=== PATIENT | female | born 1985 | race Two or more races ===

== ENCOUNTER → 2016-07-15 | Outpatient (CLI) | payer BC ==
[2016-07-15 10:01] LABS: CHLORIDE,CL 110 mmol/L (98-110); SODIUM,NA 139 mmol/L (136-146)
== END | disposition home or self-care (01) ==
LOC: MW.US 09:09 → MW.CHFP 12:00 → MW.US 07-23 09:15
PROVIDERS: ATTEND Nurse Practitioner Family
DX: R10.13 Epigastric pain (principal); Z98.890 Other specified postprocedural states
CPT/HCPCS: 36415; 76705; 76705-26; 80053; 82607; 82652; 82728; 82746; 85027; 86677

== ENCOUNTER → 2016-07-23 | Outpatient (CLI) | payer BC ==
--- NOTE | 2016-07-23 11:29 | US ---
EXAMINATION: Right upper quadrant ultrasound HISTORY: Pain COMPARISON: None TECHNIQUE: Grayscale and color Doppler images obtained of the right upper quadrant. FINDINGS: The visualized pancreas appears normal. The liver is normal in contour and echogenicity wi thout a focal hepatic mass. The common bile duct measures 4 mm. The gallbladder wall thickness is no rmal. No pericholecystic fluid or shadowing gallstones. Right kidney measures 11.9 cm [id number] w ithout evidence hydronephrosis. The upper pole of the right kidney appears mildly increased in gener alized echogenicity. Sonographic Ellis sign is negative. IMPRESSION: 1. The upper pole of the right kidney is mildly increased in generalized echogenicity, possibly repr esenting scarring versus an angiomyolipoma. 2. Otherwise unremarkable right upper quadrant.
== END | disposition home or self-care (01) ==
LOC: MW.US 09:32
PROVIDERS: ATTEND Nurse Practitioner Family
DX: R10.13 Epigastric pain (principal)
CPT/HCPCS: 76705; 76705-26

== ENCOUNTER → 2016-08-03 | Outpatient (CLI) | payer BC ==
--- NOTE | 2016-08-03 13:48 | NM ---
EXAM DATE: 08/03/16 PATIENT'S AGE: 31 Patient: MARIA ESTHER ANDUJAR Facility: [place], [place] Site Site : [id number] Study: NM Gallbladder [id number]/24/2017 11:59:46 AM Ordering Physician: YA Final Report: HISTORY: 31-year-old female. Epigastric pain. Technique: 3.6 millicuries of [id number] was injected intravenously. Images of the liver, gallbladder and abdomen were obtained in the anterior projection for 45 minutes. 1.7 mcg CCK was then administered intravenously and imaging was continued for an additional 30 minutes. Findings: There is good uptake of activity by the hepatocytes. There is visualization of the biliary tree, gallbladder and small bowel. In response to CCK administration, there is a normal gallbladder ejection fraction of 84 percent by 30 minutes. Impression: 1. Normal study. There is no evidence of acute or chronic cholecystitis. 2. Normal gallbladder ejection fraction of 84 percent. Dictated by Waylon Meléndez MD @ Aug 03 2016 12:45PM (Electronic Signature) Report Signed by Proxy and Original Signed Document filed in the Medical Record. [facility] HOSPITALHeather
== END ==
LOC: MW.NM 10:03
PROVIDERS: ATTEND Nurse Practitioner Family
DX: R10.13 Epigastric pain (principal)
CPT/HCPCS: 78227; A9537; J2805

== ENCOUNTER 2016-12-08 13:56 | Emergency (ER) | payer BC ==
[2016-12-08 14:16] VITALS: BP 146/98
--- NOTE | 2016-12-08 14:36 | EDM.PDOC ---
ED HPI GENERAL MEDICAL PROBLEM - General Chief Complaint: Skin Complaint Stated Complaint: PAINFUL RASH Time Seen by Provider: 12/08/16 14:21 - History of Present Illness INITIAL COMMENTS - FREE TEXT/NARRATIVE: HISTORY AND PHYSICAL: History of present illness: Patient is a 31-year-old white female presented with concern of rash 4 months this is in her abdominal skin folds which were the result of substantive weight loss secondary to bariatric surgery she is scheduled see plastic surgery regarding surgical considerations she has been treated with steroid cream and antifungal cream as well as oral antibiotics. She has not seen dermatology she presents now with increased discomfort with the rash. Review of systems: As per history of present illness and below otherwise all systems reviewed and negative. Past medical history: As per history of present illness and as reviewed below otherwise noncontributory. Surgical history: As per history of present illness and as reviewed below otherwise noncontributory. Social history: No reported history of drug or alcohol abuse. Family history: As per history of present illness and as reviewed below otherwise noncontributory. Physical exam: HEENT: Atraumatic, normocephalic, pupils reactive, negative for conjunctival pallor or scleral icterus, mucous membranes moist, throat clear, neck supple, nontender, trachea midline. Lungs: Clear to auscultation, breath sounds equal bilaterally, chest nontender. Heart: S1S2, regular, negative for clicks, rubs, or JVD. Abdomen: Soft, nondistended, nontender. Negative for masses or hepatosplenomegaly. Negative for costovertebral tenderness. Patient noted to have a monilial type rash in the skin folds of her lower abdomen this area is moist somewhat excoriated in limited to her left abdomen and suprapubic area Pelvis: Stable nontender. Genitourinary: Deferred. Rectal: Deferred. Extremities: Atraumatic, negative for cords or calf pain. Neurovascular unremarkable. Neuro: Awake, alert, oriented. Cranial nerves II through XII unremarkable. Cerebellum unremarkable. Motor and sensory unremarkable throughout. Exam nonfocal. Diagnostics: None Therapeutics: None Impression: #1 rash probable retaining his candidiasis rule out superinfection Definitive disposition and diagnosis as appropriate pending reevaluation and review of above. Lower Abdomen Pain Score (Numeric/FACES): 8 - Related Data Allergies Allergy/AdvReac Type Severity Reaction Status Date / Time NSAIDS (Non-Steroidal Allergy Abdominal Verified 11/05/15 21:56 Anti-Inflamma Pain Home Meds: Home Meds Multivitamin [Multivitamins] 1 cap PO DAILY 11/05/15 [History] Betamethasone Dipropionate [Diprosone 0.05% Crm] 1 applic TOP BID 12/08/16 [ History] Nystatin [Nystop] 1 applic TOP BID 12/08/16 [History] Past Medical History Cardiovascular History: Reports: Hypertension Gastrointestinal History: Reports: GI Bleed Neurological History: Reports: None Psychiatric History: Reports: None - Past Surgical History GI Surgical History: Reports: Appendectomy, Bariatric Procedure Social & Family History - Family History Family Medical History: Noncontributory - Tobacco Use Smoking Status *Q: Never Smoker Second Hand Smoke Exposure: No - Alcohol Use Days Per Week of Alcohol Use: 1 Number of Drinks Per Day: 3 Total Drinks Per Week: 3 - Recreational Drug Use Recreational Drug Use: No ED ROS GENERAL - Review of Systems Review Of Systems: ROS reveals no pertinent complaints other than HPI. ED EXAM, SKIN/RASH Exam: See Below (See dictation) Course - Vital Signs Last Recorded V/S: Last Vital Signs Temp 36.6 C 12/08/16 14:11 Pulse 88 12/08/16 14:11 Resp 20 12/08/16 14:11 BP 146/98 H 12/08/16 14:11 Pulse Ox Departure - Departure Time of Disposition: 14:37 Disposition: Home, Self-Care 01 Condition: Good Clinical Impression: Cutaneous candidiasis, Cellulitis - Discharge Information Referrals: Jaycee Milton [employer]IC STORE MANAGER [Primary Care Provider] - Additional Instructions: The following information is given to patients seen in the emergency department who are being discharged to home. This information is to outline your options for follow-up care. We provide all patients seen in our emergency department with a follow-up referral. The need for follow-up, as well as the timing and circumstances, are variable depending upon the specifics of your emergency department visit. If you don't have a primary care physician on staff, we will provide you with a referral. We always advise you to contact your personal physician following an emergency department visit to inform them of the circumstance of the visit and for follow-up with them and/or the need for any referrals to a consulting specialist. The emergency department will also refer you to a specialist when appropriate. This referral assures that you have the opportunity for followup care with a specialist. All of these measure are taken in an effort to provide you with optimal care, which includes your followup. Under all circumstances we always encourage you to contact your private physician who remains a resource for coordinating your care. When calling for followup care, please make the office aware that this follow-up is from your recent emergency room visit. If for any reason you are refused follow-up, please contact the [facility] emergency department at and asked to speak to the emergency department charge nurse. Follow-up private medical doctor dermatology referral as discussed acute schedule appointment with plastic surgery Bactrim Bactroban Mycolog as prescribed return as needed as discussed
== END 2016-12-08 15:07 | disposition home or self-care (01) ==
LOC: MW.ED 13:56
DX: B37.2 Candidiasis of skin and nail (principal); L03.90 Cellulitis, unspecified; I10 Essential (primary) hypertension; Z90.49 Acquired absence of other specified parts of digestive tract; Z98.84 Bariatric surgery status; Z88.8 Allergy status to other drugs, medicaments and biological substances
CPT/HCPCS: 99282

== ENCOUNTER 2017-02-10 08:17 | Day surgery (SDC) | payer BC ==
[~2017-02-10 08:17] MED LIST: ceFAZolin 2 GM in Premix Bag 1 BAG IV ONE
[2017-02-10] MEDS: Lactated Ringers 1,000 ML IV SCH ×2 (08:47→15:39)
[2017-02-10] MEDS ORDERED: Bupivacaine 0.25%/EPINEPHrine 1:200,000 10 ML SDV INJECT ONE (09:00)
--- NOTE | 2017-02-10 09:28 | PCM.PREANE ---
Preanesthetic Assessment - Anesthesia/Transfusion/Family Hx Anesthesia History: Prior Anesthesia Reaction Type of Anesthesia Reaction: Excessive Nausea/Vomiting Family History of Anesthesia Reaction: No Transfusion History: No Prior Transfusion(s) - Review of Systems General: No Symptoms Pulmonary: No Symptoms Cardiovascular: No Symptoms Gastrointestinal: No Symptoms Neurological: No Symptoms Other: Reports: None - Physical Assessment NPO Status Date: 02/09/17 O2 Sat by Pulse Oximetry: 98 Respiratory Rate: 16 Vital Signs: Last Vital Signs Temp 36.4 C 02/10/17 08:46 Pulse 72 02/10/17 08:46 Resp 16 02/10/17 08:46 BP 135/96 H 02/10/17 08:46 Pulse Ox 98 02/10/17 08:46 Height: 1.65 m Weight: 91.172 kg ASA Class: 2 Mental Status: Alert & Oriented x3 Airway Class: Mallampati = 1 Dentition: Reports: Normal Dentition ROM/Head Extension: Full Lungs: Clear to Auscultation, Normal Respiratory Effort Cardiovascular: Regular Rate, Regular Rhythm - Lab Values: Laboratory Last Values Urine HCG, Qual NEGATIVE (NEGATIVE) 02/10/17 08:20 - Allergies Allergies/Adverse Reactions: Allergies Allergy/AdvReac Type Severity Reaction Status Date / Time adhesive tape Allergy Blisters Verified 02/05/17 12:43 NSAIDS (Non-Steroidal Allergy Abdominal Verified 02/05/17 11:10 Anti-Inflamma Pain - Anesthesia Plan Beta Jose: Metoprolol Med Last Dose Date: 02/10/17 - Acknowledgements Anesthesia Type Planned: General Anesthesia Pt an Appropriate Candidate for the Planned Anesthesia: Yes Alternatives and Risks of Anesthesia Discussed w Pt/Guardian: Yes Pt/Guardian Understands and Agrees with Anesthesia Plan: Yes PreAnesthesia Questionnaire Cardiovascular History: Reports: Hypertension Gastrointestinal History: Reports: GERD Neurological History: Reports: Concussion Psychiatric History: Reports: None Endocrine/Metabolic History: Reports: Obesity/BMI 30+ Hematologic History: Reports: Anemia, B12 Deficiency Dermatologic History: Reports: Other (See Below) Other Dermatologic History: chronic dermatitis under panus - Infectious Disease History Infectious Disease History: Reports: Chicken Pox - Past Surgical History Head Surgeries/Procedures: Reports: None GI Surgical History: Reports: Appendectomy, Bariatric Procedure - SUBSTANCE USE Smoking Status *Q: Never Smoker Second Hand Smoke Exposure: No Days Per Week of Alcohol Use: 1 Number of Drinks Per Day: 3 Total Drinks Per Week: 3 Recreational Drug Use History: No - HOME MEDS Home Medications: Home Meds Betamethasone Dipropionate [Diprosone 0.05% Crm] 1 applic TOP BID 12/08/16 [ History] Ferrous Sulfate 324 mg PO DAILY 02/05/17 [History] Lisinopril/Hydrochlorothiazide [Lisinopril-Hctz 20-12.5 mg Tab] 1 tab PO DAILY 02/05/17 [History] Metoprolol Succinate 100 mg PO DAILY 02/05/17 [History] Nystatin 1 dose TOP BID 02/05/17 [History] Ondansetron [Zofran Odt] 8 mg PO TID PRN 02/05/17 [History] - CURRENT (IN HOUSE) MEDS Current Meds: Current Medications Hydrocodone Bitart/Acetaminophen ([place] 325-5 Mg) 1 tab PO Q4H PRN PRN Reason: Pain Bupivacaine Liposome (Exparel) 20 ml INFILT ONETIME ONE Stop: 02/10/17 14:01 Diphenhydramine HCl (Benadryl) 25 mg PO Q4H PRN PRN Reason: Itching Hydromorphone HCl (Dilaudid) 0.5 mg IVPUSH Q2H PRN PRN Reason: Pain (severe 7-10) Lactated Ringer's (Ringers, Lactated) 1,000 mls @ 125 mls/hr IV ASD[facility]RECTED [facility] Last Admin: 02/10/17 08:47 Dose: 125 mls/hr Ondansetron HCl (Zofran Odt) 4 mg PO Q6H PRN PRN Reason: Nausea/Vomiting Ondansetron HCl (Zofran) 4 mg IVPUSH Q6H PRN PRN Reason: Nausea/Vomiting Discontinued Medications Bupivacaine HCl/Epinephrine Bitart (Marcaine 0.25%/Epinephrine 1:200,000) 30 ml INJECT ONETIME ONE Stop: 02/10/17 09:01 Cefazolin Sodium/Dextrose 2 gm (/ Premix) 50 mls @ 100 mls/hr IV ONETIME ONE Stop: 02/10/17 08:29
[2017-02-10] MEDS ORDERED: Lidocaine 2% 5 ML SDV ONE (09:31)
[2017-02-10] MEDS ORDERED: Propofol 200 MG/20 ML SDV ONE ×3 (09:32→12:41)
[2017-02-10] MEDS ORDERED: fentaNYL 100 MCG/2 ML SDV ONE ×2 (09:32→11:56)
[2017-02-10] MEDS ORDERED: Midazolam 1 MG/ML 2 ML SDV ONE (09:32)
[2017-02-10] MEDS ORDERED: Neostigmine Methylsulfate 1 MG/ML 5 ML Syringe ONE (09:33)
[2017-02-10] MEDS ORDERED: Rocuronium 10 MG/ML 10 ML Syringe ONE (09:33)
[2017-02-10] MEDS ORDERED: Ondansetron 4 MG/2 ML SDV ONE ×2 (09:33→11:32)
[2017-02-10] MEDS ORDERED: ceFAZolin 1 GM Vial ONE (09:38)
[2017-02-10] MEDS ORDERED: Sodium Chloride 0.9% 20 ML ONE (09:38)
[2017-02-10] MEDS ORDERED: Bupivacaine 0.25%/EPINEPHrine 1:200,000 10 ML SDV ONE (10:29)
[2017-02-10] MEDS ORDERED: Octyl 2-Cyanoacrylate 1 Tube ONE (10:29)
[2017-02-10] MEDS ORDERED: Scopolamine 1.5 MG Transdermal Patch ONE (11:08)
[2017-02-10] MEDS ORDERED: HYDROmorphone 2 MG/ML Syringe ONE (11:26)
[2017-02-10] MEDS ORDERED: ePHEDrine 50 MG/ML SDV ONE (11:34)
[2017-02-10] MEDS ORDERED: HYDROmorphone 2 MG/ML Syringe IVPUSH ONE (13:59)
[2017-02-10] MEDS ORDERED: diphenhydrAMINE 25 MG Cap PO PRN (14:00)
[2017-02-10] MEDS ORDERED: Bupivacaine Liposome 1.3% 20 ML SDV INFILT ONE (14:00)
--- NOTE | 2017-02-10 14:21 | PCM.POSTAN ---
POST ANESTHESIA ASSESSMENT - MENTAL STATUS Mental Status: Alert, Oriented - RESPIRATORY Respiratory Status: Respiratory Rate WNL, Airway Patent, O2 Saturation Stable - CARDIOVASCULAR CV Status: Pulse Rate WNL, Blood Pressure Stable - GASTROINTESTINAL GI Status: No Symptoms - POST OP HYDRATION Hydration Status: Adequate & Stable
[2017-02-10] MEDS: fentaNYL 100 MCG/2 ML SDV IVPUSH PRN ×2 (14:26→14:30)
--- NOTE | 2017-02-10 15:09 | PCM.OPNOTE ---
- General Post-Op/Procedure Note Date of Surgery/Procedure: 02/10/17 Operative Procedure(s): panniculectomy with umbilicoplasty Pre Op Diagnosis: pannus Post-Op Diagnosis: pannus Anesthesia Technique: General ET Tube, Local Primary Surgeon: Kori Chanel Clinical Athletic Instructor: Paola Messina Complications: None Condition: Good Free Text/Narrative:: Intake & Output 02/09/17 02/10/17 02/10/17 23:59 07:59 15:59 Intake Total 2500 Balance 2500
[2017-02-10] MEDS: Ondansetron 4 MG/2 ML SDV IVPUSH PRN (15:28)
[2017-02-10] MEDS: HYDROmorphone 2 MG/ML Syringe IVPUSH PRN ×3 (15:42→20:12)
--- NOTE | 2017-02-10 17:17 | PCM48HPAN ---
Post Anesthesia Note - EVALUATION WITHIN 48HRS OF ANESTHETIC Vital Signs in Normal Range: Yes Patient Participated in Evaluation: Yes Respiratory Function Stable: Yes Airway Patent: Yes Cardiovascular Function Stable: Yes Hydration Status Stable: Yes Pain Control Satisfactory: Yes Nausea and Vomiting Control Satisfactory: Yes Mental Status Recovered: Yes
[2017-02-10] MEDS: Ondansetron 4 MG Tab.DIS PO PRN (18:09)
[2017-02-10] MEDS: Acetaminophen/HYDROcodone 325-5 MG Tab PO PRN ×2 (19:43→19:47)
[2017-02-11] MEDS: HYDROmorphone 2 MG/ML Syringe IVPUSH PRN (00:04)
[2017-02-11] MEDS: Ondansetron 4 MG/2 ML SDV IVPUSH PRN (00:11)
[2017-02-11] MEDS: Lactated Ringers 1,000 ML IV SCH ×2 (00:14→08:18)
[2017-02-11] MEDS: Acetaminophen/HYDROcodone 325-5 MG Tab PO PRN ×3 (04:13→12:01)
[2017-02-11] MEDS: Ondansetron 4 MG Tab.DIS PO PRN (08:16)
[2017-02-11 11:39] VITALS: BP 107/65
[2017-02-11] MEDS ORDERED: Acetaminophen/HYDROcodone 325-5 MG Tab PO PRN (15:21)
--- NOTE | 2017-02-16 08:10 | PCM.SN ---
- Free Text/Narrative Note: Post op day one patient is doing well and taking only oral medications. no nausea and would like to go home.
--- NOTE | 2017-02-16 10:40 | OR ---
SURGEON: SHAW RODGERS MD DATE OF PROCEDURE: 02/10/2017 PREOPERATIVE DIAGNOSIS: Abdominal pannus. POSTOPERATIVE DIAGNOSIS: Abdominal pannus. PROCEDURE: Panniculectomy with umbilicoplasty. ANESTHESIA: General ET tube with local. AXMINSTER WEAVER: PADILLA [place] INDICATIONS: Ms. Anthony is a 32-year-old female with significant abdominal pannus after a massive weight loss. Risks and benefits of panniculectomy were discussed with her and she was in agreement to proceed. In addition, we discussed umbilical repositioning and she would like to proceed with this. Risks were including, but not limited to, bleeding, infection, damage to underlying or overlying structures, possible need for future interventions, possible scarring. PROCEDURE IN DETAIL: After informed consent was obtained and placed on the chart, the patient was brought to the operating theater and laid in supine position. After adequate general anesthesia was obtained, the area was prepped and draped and a time-out was completed to confirm side and site. Once adequately confirmed, attention was then paid to the inferior lower incision on the abdomen. Dissection was then carried on the abdominal wall, freeing up the abdominal flap up to the xiphoid process taking care to isolate the umbilicus. Once adequately isolated, meticulous hemostasis was obtained and the skin was redraped. Once adequately redraped and approximated, attention was then paid to marking for the actual excision. This was just slightly above the umbilicus. Once adequately marked, excess skin was removed and attention was paid to the mons. The mons was elevated a small amount in order to allow appropriate contour and tacking to the pubic bone. This was done with deep 2-0 PDS sutures. Once adequately tacked, the area was redraped and a small additional amount of skin was removed from here. Once this was completed, attention was then paid to redraping of the skin flap on the upper abdomen and plication sutures were used to plicate the abdominal wall to the skin flap in appropriate contour at the lateral rectus edge. This also was used to advance the upper skin flap to allow closure under no tension. Once adequately advanced with a 2-0 PDS sutures, attention was then paid to placement of the size 7 YUSEF drain and these were sutured laterally at the lateral aspect of the incision using a 3-0 Prolene. Once sutured in place, the skin flap was redraped and stapled. Once adequately stapled, attention was then paid to meticulous closure and a running 2-0 STRATAFIX PDS suture was used for the deep layer, a running 3- 0 Monocryl STRATAFIX suture was used for the dermis, and a running 4-0 STRATAFIX suture was used for the skin. Four of each were used for closure. Once adequately closed, the wounds were dressed with Steri-Strips, fluffs, and tape. Prior to placement of the dressings on the lower abdomen, the umbilicus was brought through in its new measured position using an inverted V incision. Dissection was carried through the skin and subcutaneous tissues using a 15 blade and Littler scissor for dissection. The umbilicus was easily located and brought through under no tension. This was shaped and then sutured in place using deep 4-0 Monocryl stitches and Dermabond for the skin. It was then dressed with a Tegaderm border. Once the procedure was completed and the dressings were placed, attention was then paid to placement of the abdominal compression garment. She tolerated this well. All counts and needles were correct at the end of the case. FOLLOWUP INSTRUCTIONS: The patient will be maintained in the hospital overnight under same day surgery status and will be discharged tomorrow. All questions answered and we will re- evaluate in the morning. CRUZITO KARIMI /[id number]
--- NOTE | 2017-02-23 12:35 | PCM.HPR ---
H & P Addendum review - H & P Addendum Review Date of Original H & P: 01/28/17 Date Reviewed: 02/10/17 Time Reviewed: 11:00 Patient was Examined: No Changes Please Note any Changes: H&P and addendum are on chart in scanned documents. No H&P or addendum actually needed.
== END 2017-02-11 15:50 | disposition home or self-care (01) ==
LOC: MW.SDS 08:17 → MW.MS 15:49 → MW.SDS 02-11 15:50
PROVIDERS: ATTEND Plastic Surgery
DX: E65 Localized adiposity (principal); I10 Essential (primary) hypertension; K21.9 Gastro-esophageal reflux disease without esophagitis; E66.9 Obesity, unspecified; E53.8 Deficiency of other specified B group vitamins; Z88.8 Allergy status to other drugs, medicaments and biological substances; Z91.09 Other allergy status, other than to drugs and biological substances; Z68.30 Body mass index [BMI] 30.0-30.9, adult; Z90.49 Acquired absence of other specified parts of digestive tract; Z98.84 Bariatric surgery status; Z79.899 Other long term (current) drug therapy
CPT/HCPCS: 15830; 15847; 81025; A9270; J0690; J1170; J2250; J2405; J3010; J7120; 00802; J2704

== ENCOUNTER 2017-07-07 21:37 | Emergency (ER) | payer BC, OTHER ==
[2017-07-07] MEDS ORDERED: Sodium Chloride 0.9% 1,000 ML IV ONE (21:48)
[2017-07-07] MEDS ORDERED: Ondansetron 4 MG/2 ML SDV IVPUSH ONE (21:48)
--- NOTE | 2017-07-07 21:54 | EDM.PDOC ---
ED HPI GENERAL MEDICAL PROBLEM - General Chief Complaint: Gastrointestinal Problem Stated Complaint: DIARRHEA Time Seen by Provider: 07/07/17 21:51 - History of Present Illness INITIAL COMMENTS - FREE TEXT/NARRATIVE: HISTORY AND PHYSICAL: History of present illness: Patient 32-year-old female who presents with concern of nausea vomiting and sore throat worse over last 2-3 days she denies fever chills she denies influenza immunization this year denies denies vaginal discharge bleeding or other concern Review of systems: As per history of present illness and below otherwise all systems reviewed and negative. Past medical history: As per history of present illness and as reviewed below otherwise noncontributory. Surgical history: As per history of present illness and as reviewed below otherwise noncontributory. Social history: No reported history of drug or alcohol abuse. Family history: As per history of present illness and as reviewed below otherwise noncontributory. Physical exam: HEENT: Atraumatic, normocephalic, pupils reactive, negative for conjunctival pallor or scleral icterus, mucous membranes dry, throat clear, neck supple, nontender, trachea midline. Lungs: Clear to auscultation, breath sounds equal bilaterally, chest nontender. Heart: S1S2, regular, negative for clicks, rubs, or JVD. Abdomen: Soft, nondistended, nontender. Negative for masses or hepatosplenomegaly. Negative for costovertebral tenderness. Pelvis: Stable nontender. Genitourinary: Deferred. Rectal: Deferred. Extremities: Atraumatic, negative for cords or calf pain. Neurovascular unremarkable. Neuro: Awake, alert, oriented. Cranial nerves II through XII unremarkable. Cerebellum unremarkable. Motor and sensory unremarkable throughout. Exam nonfocal. Diagnostics: CBC CMP hCG rapid strep influenza screen Therapeutics: Saline 1 L bolus Impression: #1 vomiting with dehydration #2 pharyngitis #3 viral syndrome #4 dehydration Definitive disposition and diagnosis as appropriate pending reevaluation and review of above. throat/abdominal Pain Score (Numeric/FACES): 4 - Related Data Allergies Allergy/AdvReac Type Severity Reaction Status Date / Time adhesive tape Allergy Blisters Verified 07/07/17 21:44 NSAIDS (Non-Steroidal Allergy Abdominal Verified 07/07/17 21:44 Anti-Inflamma Pain oxycodone Allergy Vomiting Verified 07/07/17 21:45 Home Meds: Home Meds Betamethasone Dipropionate [Diprosone 0.05% Crm] 1 applic TOP BID 12/08/16 [ History] Ferrous Sulfate 324 mg PO DAILY 02/05/17 [History] Lisinopril/Hydrochlorothiazide [Lisinopril-Hctz 20-12.5 mg Tab] 1 tab PO DAILY 02/05/17 [History] Metoprolol Succinate 100 mg PO DAILY 02/05/17 [History] Nystatin 1 dose TOP BID 02/05/17 [History] Acetaminophen/HYDROcodone [[place]ress 325-5 MG] 2 tab PO Q4H PRN #40 tablet 02/11/17 [Rx] Cephalexin [Keflex] 250 mg PO Q6HR #20 cap 02/11/17 [Rx] Ondansetron [Zofran Odt] 8 mg PO TID PRN #20 tab.dis 02/11/17 [Rx] Past Medical History Cardiovascular History: Reports: Hypertension Gastrointestinal History: Reports: GERD, Other (See Below) Other Gastrointestinal History: Bleeding Ulcer Neurological History: Reports: Concussion Psychiatric History: Reports: None Endocrine/Metabolic History: Reports: Obesity/BMI 30+ Hematologic History: Reports: Anemia, B12 Deficiency Dermatologic History: Reports: Other (See Below) Other Dermatologic History: chronic dermatitis under panus - Infectious Disease History Infectious Disease History: Reports: Chicken Pox - Past Surgical History Head Surgeries/Procedures: Reports: None GI Surgical History: Reports: Appendectomy, Bariatric Procedure Social & Family History - Family History Family Medical History: Noncontributory - Tobacco Use Smoking Status *Q: Never Smoker Second Hand Smoke Exposure: No - Caffeine Use Caffeine Use: Reports: Coffee - Alcohol Use Days Per Week of Alcohol Use: 1 Number of Drinks Per Day: 3 Total Drinks Per Week: 3 - Recreational Drug Use Recreational Drug Use: No Drug Use in Last 12 Months: No ED ROS GENERAL - Review of Systems Review Of Systems: ROS reveals no pertinent complaints other than HPI. ED EXAM, GENERAL - Physical Exam Exam: See Below (See dictation) Course - Vital Signs Last Recorded V/S: Last Vital Signs Temp 36.9 C 07/07/17 23:01 Pulse 72 07/07/17 23:01 Resp 20 07/07/17 23:01 BP 156/112 H 07/07/17 23:01 Pulse Ox 100 07/07/17 23:01 - Orders/Labs/Meds Labs: Laboratory Tests 07/07/17 07/07/17 07/07/17 Range/Units 21:48 22:03 22:05 WBC 3.02 L (4.0-11.0) K/uL RBC 5.29 (4.30-5.90) M/uL Hgb 11.9 L (12.0-16.0) g/dL Hct 36.6 (36.0-46.0) % MCV 69.2 L (80.0-98.0) fL MCH 22.5 L (27.0-32.0) pg MCHC 32.5 (31.0-37.0) g/dL RDW Std Deviation 44.2 (28.0-62.0) fl RDW Coeff of [place] 18 H (11.0-15.0) % Plt Count 345 (150-400) K/uL MPV 8.50 (7.40-12.00) fL Neut % (Auto) 57.6 (48.0-80.0) % Lymph % (Auto) 32.8 (16.0-40.0) % [place] % (Auto) 8.6 (0.0-15.0) % Eos % (Auto) 0.7 (0.0-7.0) % Baso % (Auto) 0.3 (0.0-1.5) % Neut # (Auto) 1.7 (1.4-5.7) K/uL Lymph # (Auto) 1.0 (0.6-2.4) K/uL [place] # (Auto) 0.3 (0.0-0.8) K/uL Eos # (Auto) 0.0 (0.0-0.7) K/uL Baso # (Auto) 0.0 (0.0-0.1) K/uL Nucleated RBC % 0.0 /100WBC Nucleated RBCs # 0 K/uL Sodium 137 (136-145) mmol/L Potassium 3.5 (3.5-5.1) mmol/L Chloride 104 (98-107) mmol/L Carbon Dioxide 24.0 (21.0-32.0) mmol/L BUN 8 (7.0-18.0) mg/dL Creatinine 0.7 (0.6-1.0) mg/dL Est Cr Clr Drug Dosing 105.74 mL/min Estimated GFR (MDRD) > 60.0 ml/min Glucose 86 (74-106) mg/dL Calcium 8.4 L (8.5-10.1) mg/dL Total Bilirubin 0.4 (0.2-1.0) mg/dL AST 33 (15-37) IU/L ALT 30 (14-63) IU/L Alkaline Phosphatase 60 (46-116) U/L Total Protein 7.9 (6.4-8.2) g/dL Albumin 3.6 (3.4-5.0) g/dL Globulin 4.3 H (2.0-3.5) g/dL Albumin/Globulin Ratio 0.8 L (1.3-2.8) HCG, Qual NEGATIVE (NEG) Urine Color Urine Appearance Urine pH (5.0-8.0) Ur Specific [address] (1.001-1.035) Urine Protein (NEGATIVE) mg/dL Urine Glucose (UA) (NEGATIVE) mg/dL Urine Ketones (NEGATIVE) mg/dL Urine Occult Blood (NEGATIVE) Urine Nitrite (NEGATIVE) Urine Bilirubin (NEGATIVE) Urine Ictotest Urine Urobilinogen (<2.0) EU/dL Ur Leukocyte Esterase (NEGATIVE) Urine RBC (0-2/HPF) Urine WBC (0-5/HPF) Ur Epithelial Cells (NONE-FEW) Urine Bacteria (NEGATIVE) Urine Mucus (NONE-MOD) 07/07/17 Range/Units 22:20 WBC (4.0-11.0) K/uL RBC (4.30-5.90) M/uL Hgb (12.0-16.0) g/dL Hct (36.0-46.0) % MCV (80.0-98.0) fL MCH (27.0-32.0) pg MCHC (31.0-37.0) g/dL RDW Std Deviation (28.0-62.0) fl RDW Coeff of [place] (11.0-15.0) % Plt Count (150-400) K/uL MPV (7.40-12.00) fL Neut % (Auto) (48.0-80.0) % Lymph % (Auto) (16.0-40.0) % [place] % (Auto) (0.0-15.0) % Eos % (Auto) (0.0-7.0) % Baso % (Auto) (0.0-1.5) % Neut # (Auto) (1.4-5.7) K/uL Lymph # (Auto) (0.6-2.4) K/uL [place] # (Auto) (0.0-0.8) K/uL Eos # (Auto) (0.0-0.7) K/uL Baso # (Auto) (0.0-0.1) K/uL Nucleated RBC % /100WBC Nucleated RBCs # K/uL Sodium (136-145) mmol/L Potassium (3.5-5.1) mmol/L Chloride (98-107) mmol/L Carbon Dioxide (21.0-32.0) mmol/L BUN (7.0-18.0) mg/dL Creatinine (0.6-1.0) mg/dL Est Cr Clr Drug Dosing mL/min Estimated GFR (MDRD) ml/min Glucose (74-106) mg/dL Calcium (8.5-10.1) mg/dL Total Bilirubin (0.2-1.0) mg/dL AST (15-37) IU/L ALT (14-63) IU/L Alkaline Phosphatase (46-116) U/L Total Protein (6.4-8.2) g/dL Albumin (3.4-5.0) g/dL Globulin (2.0-3.5) g/dL Albumin/Globulin Ratio (1.3-2.8) HCG, Qual (NEG) Urine Color YELLOW Urine Appearance CLEAR Urine pH 5.5 (5.0-8.0) Ur Specific [address] >= 1.030 (1.001-1.035) Urine Protein NEGATIVE (NEGATIVE) mg/dL Urine Glucose (UA) NEGATIVE (NEGATIVE) mg/dL Urine Ketones 15 H (NEGATIVE) mg/dL Urine Occult Blood NEGATIVE (NEGATIVE) Urine Nitrite NEGATIVE (NEGATIVE) Urine Bilirubin SMALL H (NEGATIVE) Urine Ictotest NEGATIVE Urine Urobilinogen 0.2 (<2.0) EU/dL Ur Leukocyte Esterase NEGATIVE (NEGATIVE) Urine RBC NONE SEEN (0-2/HPF) Urine WBC 0-2 (0-5/HPF) Ur Epithelial Cells FEW (NONE-FEW) Urine Bacteria FEW (NEGATIVE) Urine Mucus MODERATE (NONE-MOD) Meds: Medications Discontinued Medications Generic Name Dose Route Start Last Admin Trade Name Senait PRN Reason Stop Dose Admin Sodium Chloride 1,000 mls @ 999 mls/hr 07/07/17 21:48 07/07/17 22:08 Normal Saline IV 07/07/17 22:48 999 mls/hr .Bolus ONE Administration Ondansetron HCl 4 mg 07/07/17 21:48 07/07/17 22:09 Zofran IVPUSH 07/07/17 21:49 4 mg ONETIME ONE Administration Departure - Departure Time of Disposition: 06:36 Disposition: Home, Self-Care 01 Condition: Good Clinical Impression: Viral syndrome - Discharge Information Instructions: Vomiting, Adult, Viral Illness, Adult, Diarrhea, Adult, Easy-to- Read Referrals: PCP,None [Primary Care Provider] - Forms: ED Department Discharge
[2017-07-07 22:42] LABS: CHLORIDE,CL 104 mmol/L (98-107); SODIUM,NA 137 mmol/L (136-145)
[2017-07-07 23:02] VITALS: BP 156/112
== END 2017-07-07 23:08 | disposition home or self-care (01) ==
LOC: MW.ED 21:37
DX: B34.9 Viral infection, unspecified (principal); I10 Essential (primary) hypertension; K21.9 Gastro-esophageal reflux disease without esophagitis; Z79.899 Other long term (current) drug therapy; Z91.09 Other allergy status, other than to drugs and biological substances; Z88.6 Allergy status to analgesic agent; Z88.8 Allergy status to other drugs, medicaments and biological substances
CPT/HCPCS: 36415; 80053; 81001; 84703; 85025; 87081; 87804; 87880; 96361; 96374; 99284; J2405; J7040; 99283

== ENCOUNTER 2020-03-25 11:26 | Emergency (ER) | payer BC, OTHER ==
[2020-03-25] MEDS ORDERED: Morphine 4 MG/ML Syringe IVPUSH ONE (12:25)
[2020-03-25] MEDS ORDERED: Ondansetron 4 MG/2 ML SDV IVPUSH ONE (13:03)
--- NOTE | 2020-03-25 14:15 | CT ---
INDICATION: fall down stairs Technique: Non-contrast head CT scan. Findings: No abnormal foci of altered attenuation in the brain parenchyma. No midline shift or mass effect. No hydrocephalus. No abnormal extra-axial fluid collections. No abnormalities identified in the visualized portions of the skull and scalp. Probable mucus retention cysts in the maxillary sinuses. Impression: No evidence of acute intracranial abnormalities. Dictated by: Yusuf Brown MD @ 03/25/2020 14:13:30 (Electronically Signed)
--- NOTE | 2020-03-25 14:25 | CT ---
HISTORY: Fall. TECHNIQUE: Noncontrast CT lumbar spine. COMPARISON: No prior. FINDINGS: There is no acute lumbar fracture or lumbar malalignment. Minor loss of disc height at L5-S1 with slight posterior listhesis of L5 on S1. The lumbar alignment is otherwise maintained. There is no significant central canal or neural foraminal stenosis. IMPRESSION: 1. No acute lumbar fracture. 2. Mild loss vertebral disc height posteriorly at L5-S1 with slight posterior listhesis of L5 on S1. Dictated by Yair Holcomb MD @ 03/25/2020 2:24:15 PM Please note that all CT scans at this facility use dose modulation, iterative reconstruction, and/or weight-based dosing when appropriate to reduce radiation dose to as low as reasonably achievable. Dictated by: Yair Holcomb MD @ 03/25/2020 14:24:20 (Electronically Signed)
--- NOTE | 2020-03-25 14:27 | CR ---
INDICATION: Fall. FINDINGS: Three views of the left elbow show no evidence of acute fracture or dislocation. No elbow joint effusion. No other bony or soft tissue abnormalities identified. Dictated by Yusuf Brown MD @ Mar 25 2020 2:24PM Signed by Dr. Yusuf Brown @ Mar 25 2020 2:25PM
--- NOTE | 2020-03-25 14:48 | EDM.PDOC ---
ED HPI GENERAL MEDICAL PROBLEM - General Chief Complaint: General Stated Complaint: FELL DOWN STAIRS Time Seen by Provider: 03/25/20 11:36 - History of Present Illness INITIAL COMMENTS - FREE TEXT/NARRATIVE: CHIEF COMPLAINT(S): Fall HISTORY OF PRESENT ILLNESS: This is a 34-year-old woman with a past medical history of hypertension who comes to the emergency department with a chief complaint of fall. The patient states that she was walking into her garage and she slipped and fell down approximately 4-5 stairs. She states that this happened approximately 1 hour ago. She states that she did hit her back her left arm, and her head. She denies any loss of consciousness. She states that she is experiencing a headache where she hit her head but denies any vomiting and has some associated nausea. She denies any double vision, blurry vision, numbness, tingling, or weakness. She states that she is mainly experiencing left elbow pain and right lower back pain. She denies any bowel incontinence or urinary retention. She states that she is not on any blood thinners. She denies any abdominal pain, chest pain, or shortness of breath. She denies any other symptoms. She states that her last menstrual period was in January however there is no way she can be . REVIEW OF SYSTEMS: Constitutional: Denies fever, chills. Eyes: Denies eye pain Ears, Nose, Mouth, & Throat: Denies earache Cardiovascular: Denies chest pain Respiratory: Denies shortness of breath Gastrointestinal: Positive for nausea. Denies vomiting, diarrhea, hematochezia, hematemesis, bilious emesis, bowel incontinence Genitourinary: Denies hematuria urinary incontinence MSK: Positive for left elbow pain and back pain. Neurological: Positive for headache. Denies numbness, tingling, weakness Psychiatric: Denies depression PAST MEDICAL HISTORY: As per history of present illness and as reviewed below otherwise noncontributory. SURGICAL HISTORY: As per history of present illness and as reviewed below otherwise noncontributory. LMP: January 2020 SOCIAL HISTORY: As per history of present illness and as reviewed below otherwise noncontributory. FAMILY HISTORY: As per history of present illness and as reviewed below otherwi se noncontributory. EXAMINATION OF ORGAN SYSTEMS/BODY AREAS: Constitutional: Blood pressure was 133/86, heart rate 91, respiratory rate 18 with an oxygen saturation 97% on room air. Temperature 36.0 General: Overall well-appearing woman in no acute distress Psychiatric: Appropriate mood and affect. Eyes: No scleral icterus or conjunctival erythema pupils are equal round reactive to light. Extraocular movements intact. ENMT: Moist mucous membranes. No pharyngeal erythema uvula is midline. Tongue protrudes midline. Cardiovascular: Regular, rate, and rhythm. No gallops, murmurs, or rubs. Bilateral upper extremity pulses symmetric and intact. No peripheral edema. No JVD. Respiratory: Lungs clear to auscultation bilaterally. No wheezes, rales, or rhonchi. Gastrointestinal: Soft, non-tender, non-distended. Normoactive bowel sounds Genitourinary: No suprapubic tenderness Musculoskeletal: Decreased range of motion of the left elbow however there is no obvious deformity. There is tenderness on the elbow directly. Distal pulses and sensation are intact. There is midline lumbar tenderness no thoracic or cervical spinal tenderness. Skin: No lesions or abrasions. Neurological: Alert and oriented. GCS of 15. Strength and sensation of right upper, right lower, and left lower are normal. Examination of the left upper extremity secondary to elbow pain. Sensation is intact. MEDICAL DECISION MAKING AND COURSE IN THE ED WITH INTERPRETATION/REVIEW OF DIAGNOSTIC STUDIES: This is a 35-year-old woman and without any significant past medical history who comes to the emergency department with accidental fall with a headache, left elbow pain, midline lumbar pain. Will obtain x-rays of the elbow and obtain a CT head and CT lumbar spine. We will provide the patient with morphine for pain relief and provide the patient with Zofran. I do not believe any labs are indicated other than hCG. hCG is negative The radiological images were viewed by myself along with reading the report from the radiologist. Left elbow x-ray does not reveal any acute fracture or dislocation. There is no elbow joint effusion. There is no obvious posterior fat pad. CT head without contrast does not reveal any acute intracranial abnormality. Lumbar CT does not reveal any acute fractures or dislocations. After labs and imaging I did discuss the results with the patient. I discussed with her at this time that she should continue to use Tylenol at home for pain relief and to use ice to the affected area 20 minutes 4 times a day. I discussed that I would be providing her with a lidocaine patch and an arm sling. I discussed the importance of following up with orthopedics. She was amenable discharge at this time and had no further questions. She is given strict return precautions. DISPOSITION: The patient was discharged home in stable condition. The patient will follow up with orthopedic CONDITION: Fair PROCEDURES: None FINAL IMPRESSION(S)/DIAGNOSES: 1. Acute mechanical fall 2. Acute left elbow injury 3. Acute lumbar strain 4. Acute headache likely secondary to head injury DME: Equipment: Arm Sling Indication: Elbow Injury Duration: Until follow up with ortho Horacio Causey M.D. head/left arm Pain Score (Numeric/FACES): 8 - Related Data Allergies Allergy/AdvReac Type Severity Reaction Status Date / Time adhesive tape Allergy Blisters Verified 03/25/20 11:35 NSAIDS (Non-Steroidal Allergy Abdominal Verified 03/25/20 11:35 Anti-Inflamma Pain oxycodone Allergy Vomiting Verified 03/25/20 11:35 Home Meds: Home Meds Iron,Carbonyl/Ascorbic Acid [Vitron-C Tablet] 1 each PO BID 07/18/19 [History] NIFEdipine [Adalat cc] 60 mg PO BID 07/18/19 [History] Acetaminophen [Tylenol Extra Strength] 1,000 mg PO Q6HR #60 tablet 03/25/20 [Rx] Labetalol [Normodyne] 200 mg PO BID 03/25/20 [History] Lidocaine 4% [Aspercreme 4%] 1 each TP DAILY #6 patch 03/25/20 [Rx] Past Medical History HEENT History: Reports: None Cardiovascular History: Reports: Hypertension Respiratory History: Reports: None Gastrointestinal History: Reports: GERD, Other (See Below) Other Gastrointestinal History: Bleeding Ulcer Genitourinary History: Reports: None GARBAGE PERSON History: Reports: None Musculoskeletal History: Reports: None Neurological History: Reports: Concussion Psychiatric History: Reports: None Endocrine/Metabolic History: Reports: Obesity/BMI 30+ Hematologic History: Reports: Anemia, B12 Deficiency Dermatologic History: Reports: Other (See Below) Other Dermatologic History: chronic dermatitis under panus - Infectious Disease History Infectious Disease History: Reports: Chicken Pox - Past Surgical History Head Surgeries/Procedures: Reports: None GI Surgical History: Reports: Appendectomy, Bariatric Procedure Female Surgical History: Reports: None Social & Family History - Family History Family Medical History: No Pertinent Family History - Tobacco Use Tobacco Use Status *Q: Never Tobacco User - Caffeine Use Caffeine Use: Reports: Coffee, Soda - Recreational Drug Use Recreational Drug Use: No ED ROS GENERAL - Review of Systems Review Of Systems: See Below ED EXAM, GENERAL - Physical Exam Exam: See Below Course - Vital Signs Last Recorded V/S: Last Vital Signs Temp 37.1 C 03/25/20 15:10 Pulse 78 03/25/20 15:10 Resp 18 03/25/20 15:10 BP 113/77 03/25/20 15:10 Pulse Ox 98 03/25/20 15:10 - Orders/Labs/Meds Orders: Active Orders 24 hr Category Date Time Status DME for Discharge [COMM] Stat Oth 03/25/20 15:08 Ordered Labs: Laboratory Tests 03/25/20 Range/Units 12:30 Urine HCG, Qual NEGATIVE (NEGATIVE) Meds: Medications Discontinued Medications Generic Name Dose Route Start Last Admin Trade Name Freq PRN Reason Stop Dose Admin Morphine Sulfate 4 mg 03/25/20 12:25 03/25/20 13:15 Morphine IVPUSH 03/25/20 12:26 4 mg ONETIME ONE Administration Ondansetron HCl 4 mg 03/25/20 13:03 03/25/20 13:15 Zofran IVPUSH 03/25/20 13:04 4 mg ONETIME ONE Administration Departure - Departure Time of Disposition: 14:47 Disposition: Home, Self-Care 01 Condition: Fair Clinical Impression: Elbow pain, left - Discharge Information *PRESCRIPTION DRUG MONITORING PROGRAM REVIEWED*: No *COPY OF PRESCRIPTION DRUG MONITORING REPORT IN PATIENT SUKHJINDER: No Prescriptions: Lidocaine 4% [Aspercreme 4%] 1 each TP DAILY #6 patch Acetaminophen [Tylenol Extra Strength] 1,000 mg PO Q6HR #60 tablet Instructions: How to Use Cold Therapy, [id number], Joint Pain Referrals: Lynette Steven RESEARCH CONSULTANT [Primary Care Provider] - Forms: ED Department Discharge Additional Instructions: The patient is informed of any results of their evaluation and diagnostic workup and all questions are answered. They are given discharge instructions and return precautions. The patient is stable for discharge. The patient states they understand and agree with the plan and that they will return if their symptoms get worse or if they have any new concerns. The following information is given to patients seen in the emergency department who are being discharged to home. This information is to outline your options for follow-up care. We provide all patients seen in our emergency department with a follow-up referral. The need for follow-up, as well as the timing and circumstances, are variable depending upon the specifics of your emergency department visit. If you don't have a primary care physician on staff, we will provide you with a referral. We always advise you to contact your personal physician following an emergency department visit to inform them of the circumstance of the visit and for follow-up with them and/or the need for any referrals to a consulting specialist. The emergency department will also refer you to a specialist when appropriate. This referral assures that you have the opportunity for follow-up care with a specialist. All of these measure are taken in an effort to provide you with optimal care, which includes your follow-up. Under all circumstances we always encourage you to contact your private physician who remains a resource for coordinating your care. When calling for follow-up care, please make the office aware that this follow-up is from your recent emergency room visit. If for any reason you are refused follow-up, please contact the [facility] Emergency Department at and asked to speak to the emergency department charge nurse. Your evaluated today on an emergent basis. Please continue to use Tylenol every 6 hours for pain relief. Please continue to ice the area 20 minutes 4 times a day and use the lidocaine patch for pain relief. Please follow-up with orthopedics within 1 week. Please return for any new or worsening symptoms such as numbness, tingling, worsening pain or intractable vomiting. [facility] Professional Building [address] [place] [address], [address] [place] [address] Sepsis Event Note (ED) - Evaluation Sepsis Screening Result: No Definite Risk - Focused Exam Vital Signs: Vital Signs Temp Pulse Resp BP Pulse Ox 03/25/20 15:10 37.1 C 78 18 113/77 98 03/25/20 11:37 36.0 C L 91 18 133/86 97 - My Orders Last 24 Hours: My Active Orders 03/25/20 15:08 DME for Discharge [COMM] Stat - Assessment/Plan Last 24 Hours: My Active Orders 03/25/20 15:08 DME for Discharge [COMM] Stat
[2020-03-25 15:13] VITALS: BP 113/77; PULSE 78
== END 2020-03-25 15:10 | disposition home or self-care (01) ==
LOC: MW.ED 11:26
DX: S39.012A Strain of muscle, fascia and tendon of lower back, initial encounter (principal); S59.902A Unspecified injury of left elbow, initial encounter; R51.9 Headache, unspecified; I10 Essential (primary) hypertension; E66.9 Obesity, unspecified; Z68.36 Body mass index [BMI] 36.0-36.9, adult; Z88.5 Allergy status to narcotic agent; Z88.8 Allergy status to other drugs, medicaments and biological substances; Z91.09 Other allergy status, other than to drugs and biological substances; Z90.49 Acquired absence of other specified parts of digestive tract; W10.9XXA Fall (on) (from) unspecified stairs and steps, initial encounter
CPT/HCPCS: 70450; 72131; 73080; 81025; 96374; 96375; 99284; J2270; J2405; 99283

== ENCOUNTER 2020-07-27 11:20 | Emergency (ER) | payer BC ==
--- NOTE | 2020-07-27 11:24 | EDM.PDOC ---
ED HPI GENERAL MEDICAL PROBLEM - General Chief Complaint: General Stated Complaint: COVID= IN PAIN CAN'T TALK Time Seen by Provider: 07/27/20 11:23 Source of Information: Reports: Patient History Limitations: Reports: No Limitations - History of Present Illness INITIAL COMMENTS - FREE TEXT/NARRATIVE: HISTORY AND PHYSICAL: History of present illness: The patient is a 35-year-old female who presents to the emergency room with complaints of extreme sore throat. She was diagnosed with Covid on Wednesday and had the antibody infusion. She complains of feeling tired and whole body aches. She has a cough and chest congestion. She has attempted Chloraseptic spray for her sore throat and Tylenol, neither of which helped. She saw her PCP who prescribed her some hydrocodone. She takes 1 every 4-6 hours and offers some relief. She denies shortness of breath. Her Max fever was 100.5. She is taking fluids appropriately. Her appetite is decreased due to nausea. Patient denies any fever, chills, headache, change in vision, syncope or near syncope. Denies any chest pain, back pain, shortness of breath or cough. Denies any abdominal pain, nausea, vomiting, diarrhea, constipation or dysuria. Has not noted any blood in urine or stool. Patient has been eating and drinking appropriately. Review of systems: As per history of present illness and below otherwise all systems reviewed and negative. Past medical history: As per history of present illness and as reviewed below otherwise noncontributory. Surgical history: As per history of present illness and as reviewed below otherwise noncontributory. Social history: See social history for further information Family history: As per history of present illness and as reviewed below otherwise noncontributory. Physical exam: General: Well developed and well nourished. Alert and orientated x 3. Nontoxic in appearance and in no acute distress. Vital signs are stable and have been reviewed by me. Nursing notes were reviewed. HEENT: Atraumatic, normocephalic, pupils equal and reactive bilaterally, negative for conjunctival pallor or scleral icterus, mucous membranes moist, throat mild redness, neck supple, nontender, trachea midline. No drooling or trismus noted. No meningeal signs. No hot potato voice noted. Lungs: Clear to auscultation bilaterally. No wheezes, rales, or rhonchi. Chest nontender. Normal work of breathing, no accessory muscles used. Heart: S1S2, regular rate and rhythm without overt murmur, gallops, or rubs. No JVD. No peripheral edema Abdomen: Soft, nondistended, nontender. Normoactive bowel sounds. Negative for masses or costovertebral tenderness. Skin: Intact, warm, dry. No lesions or rashes noted. Hematologic: No petechiae or purpra. Mucosa appropriate color and normal nail bed color and refill. Extremities: Atraumatic, moves all extremities per self without difficulty or deficits, negative for cords or calf pain. Neurovascular unremarkable. Neuro: Awake, alert, oriented. Cranial nerves II through XII unremarkable. Cerebellum unremarkable. Motor and sensory unremarkable throughout. Exam nonfocal. Psychiatric: Mood and affect are appropriate. Normal thought process. Answering questions appropriately. Notes: *This patient was seen and evaluated during the 2019 SARS-CoV-2 novel coronavirus pandemic period. Community viral transmission is ongoing at time of this encounter and the emergency department is operating under pandemic response procedures. After examination and talking with the patient is agreeable to a prescription for acetaminophen/codeine elixir 10 mls every 4 hours as needed for pain for her sore throat. I have talked with the patient about today's findings, in addition to providing specific details for plan of care. Reassessment at the time of disposition demonstrates that the patient is in no acute distress. The patient is stable for discharge, counseling was provided and we discussed in great detail signs and symptoms that would prompt them to return to the Emergency Department. Medication, follow up and supportive care measures were reviewed and discussed. Voices understanding and is agreeable to plan of care. Denies any further questions or concerns at this time. Prescription: Acetaminophen/codeine Elixir 10ml every 4 hours as needed for pain Impression: Sore throat Plan: 1. You were evaluated today on an emergent basis. Your complaints or severe throat pain due to your positive COVID is being treated with acetaminophen/codeine. You have a an allergy for oxycodone but stated you had taken liquid codeine after your bariatric surgery. If you have any allergy symptoms stop taking the acetaminophen/codeine. You will continue to have a sore throat and headache associated with COVID. Get rest, fluids and attempt soft foods such a soup. 2. You can alternate Tylenol and ibuprofen as needed for pain and fever management. 3. We encourage you to follow up with your primary care provider and/or recommended specialist in the next few days for re-evaluation and further care/management. 4. If your symptoms should worsen, new symptoms develop or any of the signs and symptoms we discussed should arise please return to the emergency room or call 911 (if needed). Definitive disposition and diagnosis as appropriate pending reevaluation and review of above. throat Pain Score (Numeric/FACES): 8 - Related Data Allergies Allergy/AdvReac Type Severity Reaction Status Date / Time adhesive tape Allergy Blisters Verified 07/27/20 11:27 NSAIDS (Non-Steroidal Allergy Abdominal Verified 07/27/20 11:27 Anti-Inflamma Pain oxycodone Allergy Vomiting Verified 07/27/20 11:27 Home Meds: Home Meds Iron,Carbonyl/Ascorbic Acid [Vitron-C Tablet] 1 each PO BID 07/18/19 [History] NIFEdipine [Adalat cc] 60 mg PO BID 07/18/19 [History] Acetaminophen [Tylenol Extra Strength] 1,000 mg PO Q6HR #60 tablet 03/25/20 [Rx] Labetalol [Normodyne] 200 mg PO BID 03/25/20 [History] Lidocaine 4% [Aspercreme 4%] 1 each TP DAILY #6 patch 03/25/20 [Rx] Acetaminophen with Codeine [Acetaminop-Codeine 120-12 mg/5] 10 ml PO Q4H PRN #1 bottle 07/27/20 [Rx] Past Medical History HEENT History: Reports: None Cardiovascular History: Reports: Hypertension Respiratory History: Reports: None Gastrointestinal History: Reports: GERD, Other (See Below) Other Gastrointestinal History: Bleeding Ulcer Genitourinary History: Reports: None [employer] CONSULTANT History: Reports: None Musculoskeletal History: Reports: None Neurological History: Reports: Concussion Psychiatric History: Reports: None Endocrine/Metabolic History: Reports: Obesity/BMI 30+ Hematologic History: Reports: Anemia, B12 Deficiency Dermatologic History: Reports: Other (See Below) Other Dermatologic History: chronic dermatitis under panus - Infectious Disease History Infectious Disease History: Reports: Chicken Pox - Past Surgical History Head Surgeries/Procedures: Reports: None GI Surgical History: Reports: Appendectomy, Bariatric Procedure Female Surgical History: Reports: None Social & Family History - Family History Family Medical History: No Pertinent Family History - Caffeine Use Caffeine Use: Reports: Coffee, Soda ED ROS GENERAL - Review of Systems Review Of Systems: Comprehensive ROS is negative, except as noted in HPI. ED EXAM, GENERAL - Physical Exam Exam: See Below (See dictation) Course - Vital Signs Last Recorded V/S: Last Vital Signs Temp 96.9 F 07/27/20 11:27 Pulse 78 07/27/20 12:20 Resp 18 07/27/20 12:20 BP 139/102 H 07/27/20 12:20 Pulse Ox 98 07/27/20 12:20 - Orders/Labs/Meds Meds: Medications Discontinued Medications Generic Name Dose Route Start Last Admin Trade Name Freq PRN Reason Stop Dose Admin Lidocaine HCl 15 ml 07/27/20 12:05 07/27/20 12:20 Lidocaine 2% Viscous Solution 15 Ml Cup PO 07/27/20 12:06 15 ml ONETIME ONE Administration Departure - Departure Time of Disposition: 11:58 Disposition: Home, Self-Care 01 Condition: Good Clinical Impression: Sore throat (viral) - Discharge Information *PRESCRIPTION DRUG MONITORING PROGRAM REVIEWED*: No *COPY OF PRESCRIPTION DRUG MONITORING REPORT IN PATIENT SUKHJINDER: No Prescriptions: Acetaminophen with Codeine [Acetaminop-Codeine 120-12 mg/5] 10 ml PO Q4H PRN #1 bottle PRN Reason: Pain (Moderate 4-6) Instructions: Sore Throat Referrals: Lynette Steven, REGULATORY MANAGER [Primary Care Provider] - Forms: ED Department Discharge Additional Instructions: The following information is given to patients seen in the emergency department who are being discharged to home. This information is to outline your options for follow-up care. We provide all patients seen in our emergency department with a follow-up referral. The need for follow-up, as well as the timing and circumstances, are variable depending upon the specifics of your emergency department visit. If you don't have a primary care physician on staff, we will provide you with a referral. We always advise you to contact your personal physician following an emergency department visit to inform them of the circumstance of the visit and for follow-up with them and/or the need for any referrals to a consulting specialist. The emergency department will also refer you to a specialist when appropriate. This referral assures that you have the opportunity for follow-up care with a specialist. All of these measure are taken in an effort to provide you with optimal care, which includes your follow-up. Under all circumstances we always encourage you to contact your private physician who remains a resource for coordinating your care. When calling for follow-up care, please make the office aware that this follow-up is from your recent emergency room visit. If for any reason you are refused follow-up, please contact the [facility] Emergency Department at and asked to speak to the emergency department charge nurse. [facility] [address] [place] [id number] [address] Plan: 1. You were evaluated today on an emergent basis. Your complaints or severe throat pain due to your positive COVID is being treated with acetaminophen/codei ne. You have a an allergy for oxycodone but stated you had taken liquid codeine after your bariatric surgery. If you have any allergy symptoms stop taking the acetaminophen/codeine. You will continue to have a sore throat and headache associated with COVID. Get rest, fluids and attempt soft foods such a soup. 2. You can alternate Tylenol and ibuprofen as needed for pain and fever management. 3. We encourage you to follow up with your primary care provider and/or recommended specialist in the next few days for re-evaluation and further care/management. 4. If your symptoms should worsen, new symptoms develop or any of the signs and symptoms we discussed should arise please return to the emergency room or call 911 (if needed). Sepsis Event Note (ED) - Focused Exam Vital Signs: Vital Signs Temp Pulse Resp BP Pulse Ox 07/27/20 12:20 78 18 139/102 H 98 07/27/20 11:27 96.9 F 88 18 139/112 H 98
[2020-07-27] MEDS ORDERED: Lidocaine 2% Viscous Solution 15 ML Cup PO ONE (12:05)
[2020-07-27 12:21] VITALS: BP 139/102; PULSE 78
== END 2020-07-27 12:23 | disposition home or self-care (01) ==
LOC: MW.ED 11:20
DX: J02.9 Acute pharyngitis, unspecified (principal); I10 Essential (primary) hypertension; E66.9 Obesity, unspecified; Z68.35 Body mass index [BMI] 35.0-35.9, adult; Z91.048 Other nonmedicinal substance allergy status; Z88.5 Allergy status to narcotic agent; Z88.8 Allergy status to other drugs, medicaments and biological substances; Z79.899 Other long term (current) drug therapy
CPT/HCPCS: 99283; A9270

== ENCOUNTER 2021-10-27 10:06 | Day surgery (SDC) | payer BC ==
[~2021-10-27 10:06] MED LIST changes: +Lactated Ringers 1,000 ML IV SCH; -ceFAZolin 2 GM in Premix Bag 1 BAG IV ONE
[2021-10-27] MEDS ORDERED: Lidocaine 2% 5 ML SDV ONE (11:14)
[2021-10-27] MEDS ORDERED: Propofol 200 MG/20 ML SDV ONE (11:14)
[2021-10-27] MEDS ORDERED: fentaNYL 100 MCG/2 ML SDV ONE (11:14)
[2021-10-27] MEDS ORDERED: Lactated Ringers 1,000 ML IV SCH (11:45)
[2021-10-27 12:09] VITALS: BP 127/76; PULSE 71
== END 2021-10-27 12:20 | disposition home or self-care (01) ==
LOC: MW.SDS 10:06
PROVIDERS: ATTEND Surgery
DX: K21.9 Gastro-esophageal reflux disease without esophagitis (principal); G89.29 Other chronic pain; E53.8 Deficiency of other specified B group vitamins; F41.8 Other specified anxiety disorders; I10 Essential (primary) hypertension; E55.9 Vitamin D deficiency, unspecified; E66.01 Morbid (severe) obesity due to excess calories; Z98.0 Intestinal bypass and anastomosis status; Z87.19 Personal history of other diseases of the digestive system; Z86.16 Personal history of COVID-19; Z88.5 Allergy status to narcotic agent; Z88.8 Allergy status to other drugs, medicaments and biological substances; Z79.899 Other long term (current) drug therapy; Z90.49 Acquired absence of other specified parts of digestive tract; Z87.11 Personal history of peptic ulcer disease; Z68.42 Body mass index [BMI] 45.0-49.9, adult
CPT/HCPCS: 43239; 81025; J2704; J3010; J7120; 00731

== ENCOUNTER 2023-05-04 18:01 | Emergency (ER) | payer BC ==
[2023-05-04] MEDS ORDERED: Acetaminophen/HYDROcodone 325-10 MG Tab PO ONE (18:24)
[2023-05-04] MEDS ORDERED: Acetaminophen 325 MG Tab PO ONE (18:27)
[2023-05-04 19:00] LABS: CORONAVIRUS COVID-19 NAA NEGATIVE (NEGATIVE); INFLUENZA A NAA POSITIVE (NEGATIVE); INFLUENZA B NAA NEGATIVE (NEGATIVE); RESPIRATORY SYNCYTIAL VIR NAA NEGATIVE (NEGATIVE)
[2023-05-04 20:17] VITALS: BP 102/57; PULSE 89
== END 2023-05-04 20:17 | disposition home or self-care (01) ==
LOC: MW.ED 18:01
DX: J10.1 Influenza due to other identified influenza virus with other respiratory manifestations (principal); I10 Essential (primary) hypertension; E66.9 Obesity, unspecified; Z91.048 Other nonmedicinal substance allergy status; Z88.8 Allergy status to other drugs, medicaments and biological substances; Z68.42 Body mass index [BMI] 45.0-49.9, adult
CPT/HCPCS: 0241U; 71045; 99285; A9270; 99283

== ENCOUNTER 2024-10-09 16:14 | Emergency (ER) | payer BC ==
[2024-10-09 16:49] LABS: BASOPHILS ABSOLUTE AUTO 0.05 K/uL (0.00-0.20); BASOPHILS PERCENT AUTO 0.8 % (0.0-1.0); EOSINOPHILS ABSOLUTE AUTO 0.06 K/uL (0.00-0.45); HEMATOCRIT 38.4 % (37.0-47.0); HEMOGLOBIN 12.3 g/dL (12.0-16.0); IMMATURE GRAN ABSOLUTE AUTO 0.01 K/uL (0.00-0.05); IMMATURE GRAN PERCENT AUTO 0.2 % (0.0-0.4); LYMPHOCYTES PERCENT AUTO 27.1 % (24.0-44.0); MEAN CORPUSCULAR HEMOGLOBIN 23.3 pg (28.0-32.0); MEAN CORPUSCULAR VOLUME 72.9 fL (83.0-99.0); MEAN PLATELET VOLUME 8.6 fL (9.4-12.3); MONOCYTES ABSOLUTE AUTO 0.59 K/uL (0.00-0.80); MONOCYTES PERCENT AUTO 9.4 % (0.0-8.0); NEUTROPHILS ABSOLUTE AUTO 3.86 K/uL (1.80-7.70); NEUTROPHILS PERCENT AUTO 61.5 % (41.0-71.0); PLATELET COUNT,PLT 485 K/uL (150-400); RED BLOOD CELL COUNT 5.27 M/uL (4.10-5.30); WHITE BLOOD CELL COUNT,WBC 6.27 K/uL (3.9-11.3)
[2024-10-09 17:12] LABS: A/G RATIO 0.8 (0.9-1.6); ALANINE AMINOTRANSFERASE,ALT 45 IU/L (14-63); ALBUMIN 3.5 g/dL (3.4-5.0); ALKALINE PHOSPHATASE 86 U/L (46-116); ASPARTATE AMNIOTRANSFERASE,AST 28 IU/L (15-37); BILIRUBIN TOTAL 0.3 mg/dL (0.2-1.0); BLOOD UREA NITROGEN,BUN 13 mg/dL (7.0-18.0); CALCIUM 8.7 mg/dL (8.5-10.1); CARBON DIOXIDE,CO2 26.3 mmol/L (21.0-32.0); CHLORIDE,CL 105 mmol/L (98-107); CREATININE 0.9 mg/dL (0.6-1.0); GLUCOSE RANDOM 90 mg/dL (74-106); POTASSIUM,K 4.1 mmol/L (3.5-5.1); PROTEIN TOTAL,TP 7.8 g/dL (6.4-8.2); SODIUM,NA 139 mmol/L (136-145)
[2024-10-09 17:17] LABS: ESTIMATED GFR 84 mL/min (>60)
[2024-10-09] MEDS: Acetaminophen 325 MG Tab PO ONE (17:20)
[2024-10-09 18:25] VITALS: BP 128/81; PULSE 76
== END 2024-10-09 20:17 | disposition home or self-care (01) ==
LOC: MW.ED 16:14
DX: R07.9 Chest pain, unspecified (principal); I10 Essential (primary) hypertension; Z86.718 Personal history of other venous thrombosis and embolism; Z79.899 Other long term (current) drug therapy; Z98.84 Bariatric surgery status; Z91.048 Other nonmedicinal substance allergy status; Z88.6 Allergy status to analgesic agent; Z88.5 Allergy status to narcotic agent
CPT/HCPCS: 36415; 71045; 71275; 80053; 84484; 84703; 85025; 85379; 93005; 99285; A9270; 93010; 99284